=== PATIENT | female | born 1950 | race Caucasian/White ===

== ENCOUNTER → 2016-11-11 | Day surgery (SDC) | payer MEDICARE, OTHER ==
[~2016-11-11] VITALS: Ht 172.7 cm; Wt 88.4 kg
[~2016-11-11] MED LIST: ASPIRIN EC81 MG PO; B COMPLEX1 EACH PO; FISH OIL 1,2001 EACH PO; KEFLEX500 MG PO; LOSARTAN-HCTZ1 EAC2 PO; MILK THISTLE200 MG PO; NORCO 5-325 TA1 EACH PO; RED YEAST RICE600 MG PO; [UNRECOGNIZED DRUG - OTHER] PO
--- NOTE | ~2016-11-11 | OR ---
PATIENT'S NAME: MARY MAYNARD [facility] AGE: 66 Y [address] ROOM: [place] [address] [place] [facility] [place]: 11/11/2016 OR/Procedure Report DISCHARGE DATE: FAMILY PHYSICIAN: Beti Brady MD ATTENDING PHYSICIAN: Mikey Cadena SURGEON: Mikey Cadena DO DIET CLERK: Staff anesthesia. DATE OF PROCEDURE: 11/11/2016 PREOPERATIVE DIAGNOSIS: Left first carpometacarpal joint arthritis. POSTOPERATIVE DIAGNOSIS: Left first carpometacarpal joint arthritis. PROCEDURE PERFORMED: Left first carpometacarpal joint implant arthroplasty with the Stablyx system. ANESTHESIA: Regional plus sedation. ESTIMATED BLOOD LOSS: Less than 10 mL. TOURNIQUET TIME: Less than 1 hour at 250 mmHg. COMPLICATIONS: None. DISPOSITION: Stable to recovery room. JUSTIFICATION FOR PROCEDURE: Mary Maynard is a 66-year-old female with a history of painful left basilar joint at the thumb. Her history, physical exam and radiologic workup are consistent with first CMC arthritis. She failed conservative treatment measures for this. She was counseled as to treatment options, risks versus benefits, and necessary afterward care. She gave informed consent to proceed with left first carpometacarpal joint implant arthroplasty and any indicated procedures. PROCEDURE IN DETAIL: The patient was properly identified, both verbally and by name tag. She was taken to the operating suite and placed on the operating table in the supine position. The anesthesiologist administered a regional anesthetic in the left upper extremity and IV sedation. Once adequate anesthesia was obtained, left upper extremity was prepped and draped in usual sterile fashion. The extremity was exsanguinated with an Esmarch bandage and tourniquet inflated to the level of the arm to 250 mmHg. A #15 blade knife was used to make a longitudinal incision on the dorsal aspect of the left first metacarpal extending from the metacarpal neck region to the level of the STT joint proximally. Under loupe magnification, careful PATIENT'S NAME: MARY MAYNARD [facility] AGE: 66 Y [address] ROOM: [place] [address] [place] [facility] DATE: 11/11/2016 OR/Procedure Report DISCHARGE DATE: FAMILY PHYSICIAN: Beti Brady MD ATTENDING PHYSICIAN: Mikey Cadena blunt dissection was carried down through the superficial to the deep fascia. Within the superficial fascia, care was taken to identify and protect the dorsal sensory branches of the radial nerve and the extensor mechanism to the thumb. The extensor pollicis brevis tendon was mobilized and retracted in an ulnar direction. A trapdoor incision was made on the dorsal fascial tissue consisting of the joint capsule and ligamentous tissue dorsally over the first CMC joint. This was an ulnar based flap which was elevated sharply off the bone on both sides of the joint. It was retracted in an ulnar direction. Extreme care was taken to identify and protect the vascular leash in the vicinity at all times. The first CMC joint was visualized. Small osteophytes and loose bodies were removed with the rongeurs. The base of the first metacarpal was then resected to a depth of about 5 mm making the cut perpendicular to the long axis of the bone on AP and lateral views. The bone cut was confirmed fluoroscopically to be perpendicular to long axis of the bone and care was taken throughout the power saw used to carefully protect the collateral ligaments and the neurovascular and tendinous structures. The bone resected was placed in a saline soaked gauze for potential later uses of impaction grafting material. The trapezium was addressed next. Osteophytes were removed. This was done with an osteotome, rongeur and the curved and contoured rasps. The trapezium joint surface was contoured back to its anatomic configuration and then sized using the included sizing tools in the Stablyx system. Once the trapezium was contoured and care was taken to ensure there were no remaining osteophytes on its volar surface, attention was turned back to the first metacarpal. The starter awl was placed into the base of the first metacarpal and fluoroscopy was used to confirm that it was parallel to the long axis of the bone and centrally located within the first metacarpal. The broach and reamers were then used to ream the bone up to the size measured off the trapezium. The trial implant was then placed after thorough irrigation with normal saline. The implant was reduced and the joint was checked for fit and finish. The thumb was placed through a range of motion and the joint was allowed to rotate to its point of neutral rotation and this area was marked on the metacarpal and indelible ink for later alignment of the real implant. The joint was visualized fluoroscopically in AP and lateral projections to ensure that it was well seated and moved well in the reduced position with no evidence of jumping or popping to suggest retained osteophytes or loose bodies within the operative field. No such issues were identified. The trial implant was removed. The wound was copiously irrigated with saline. The real implant was then opened after ensuring that it was within its expiration date limits and was impacted into the bone tunnel in the first metacarpal using the provided impactor and a mallet. Care was taken to avoid damage to the articular surface of the implant during this process. Once the implant was seated within the bone, the joint was reduced once again and the alignment was judged for fit, finish and tightness. Full passive range of motion was achieved. There was no instability to AP, varus, valgus, pivoting stresses. There was no crepitus and no popping of the joint through PATIENT'S NAME: MARY MAYNARD [facility] AGE: 66 Y [address] ROOM: [place] [address] [place] [facility] DATE: 11/11/2016 OR/Procedure Report DISCHARGE DATE: FAMILY PHYSICIAN: Beti Brady MD ATTENDING PHYSICIAN: Mikey Cadena a full arc of motion to suggest any retained loose bodies or osteophytes. The joint was visualized fluoroscopically in the AP and lateral projections and was stressed in the AP, lateral and varus, valgus as well as pivoting planes and no evidence of instability was noted. The wound was copiously irrigated with saline. The dorsal flap of capsular tissue was repaired back to its anatomic base with 4-0 FiberWire suture in interrupted [id number] fashion burying the knots. The extensor pollicis brevis tendon was returned to its anatomic position. The dorsal neurovascular structures were explored and showed no evidence of iatrogenic injury. The wound was copiously irrigated with saline the final time. Tourniquet was let down after less than 1 hour and good capillary refill was noted distally. There was no arterial bleeding noted. Hemostasis was obtained with minimal bipolar electrocautery and direct pressure. The skin was closed with 5-0 nylon suture in interrupted mattress stitch fashion. A sterile bulky bundle dressing was applied splinting the wrist and thumb in Coke can position. The patient was aroused from IV sedation and taken to the recovery room in good condition. Immediate postoperative examination in the recovery room showed good capillary refill distally in all 5 digits. Light touch sensation and motor function distally were equivocal due to persistence of the neurologic blockade. DO KANCHAN TOVAR/drakel /[id number] d: 11/20/1630 t: 11/25/16 2203, OPERATIVE SUMMARY
== END | disposition disaster alternative care site (69) ==
LOC: GPOC 10-23 11:00 → GSDC 10:34 → GPOC 13:00 → GSDC 13:00
PROC: 0RQR0ZZ Repair Left Carpal Joint, Open Approach (ICD-10-PCS; principal; 2016-11-11)
DX: M18.12 Unilateral primary osteoarthritis of first carpometacarpal joint, left hand (principal); J45.909 Unspecified asthma, uncomplicated; I10 Essential (primary) hypertension; K21.9 Gastro-esophageal reflux disease without esophagitis; E04.2 Nontoxic multinodular goiter; E78.00 Pure hypercholesterolemia, unspecified; H81.10 Benign paroxysmal vertigo, unspecified ear; Z88.1 Allergy status to other antibiotic agents; Z88.5 Allergy status to narcotic agent; Z79.82 Long term (current) use of aspirin; Z79.899 Other long term (current) drug therapy; Z90.49 Acquired absence of other specified parts of digestive tract; Z90.710 Acquired absence of both cervix and uterus; Z98.890 Other specified postprocedural states
CPT/HCPCS: C1776; J0690; J2001; J7030